=== PATIENT | male | born 1955 | race African-American/Black ===

== ENCOUNTER 2018-03-11 09:17 | Inpatient (IN) | payer MEDICAID ==
[~2018-03-11] VITALS: Ht 182.9 cm; Wt 111.6 kg
[2018-03-11 11:11] LABS: BASOPHILS % 0.4 % (0.0-2.0); EOSINOPHILS % 0.6 % (0.0-5.0); HEMATOCRIT. 46.2 % (42.0-52.0); LYMPHOCYTES % 11.3 % (20.0-50.0); MEAN CORPUSCULAR HEMOGLOBIN 34.1 pg (28.0-32.0); MEAN CORPUSCULAR VOLUME 98.2 fL (80.0-94.0); MEAN PLATELET VOLUME 6.9 fl (7.4-10.4); MONOCYTES % 7.8 % (2.0-8.0); NEUTROPHILS % 79.9 % (40.0-76.0); PLATELET 157 x1000/uL (130-400); RED CELL DISTRIBUTION WIDTH 13.4 % (11.6-14.6)
[2018-03-11 11:17] LABS: CHLORIDE 106 mEq/L (98-107)
[2018-03-11 11:19] LABS: INR 1.1; PROTHROMBIN TIME 10.7 sec (9.1-11.1)
[2018-03-11 11:24] LABS: ETHANOL BLOOD < 10 mg/dL
[2018-03-11 11:53] LABS: CLARITY URINE CLEAR (CLEAR); COLOR URINE YELLOW (YELLOW); KETONES URINE TRACE (NEGATIVE); LEUKOCYTE ESTERASE URINE NEGATIVE (NEGATIVE); NITRITE URINE NEGATIVE (NEGATIVE); OCCULT BLOOD URINE 1+ (NEGATIVE); PROTEIN URINE 1+ (NEGATIVE); SPECIFIC GRAVITY URINE 1.015 (1.005-1.030); UROBILINOGEN URINE 0.2 E.U./dL (0.2-1.0)
[2018-03-11 12:09] LABS: *AMPHETAMINES SCREEN URINE NEGATIVE (NEGATIVE); *BARBITURATES SCREEN URINE NEGATIVE (NEGATIVE); *COCAINE SCREEN URINE NEGATIVE (NEGATIVE)
[2018-03-11 12:10] LABS: METHADONE URINE SCREEN NEGATIVE (NEGATIVE); OPIATES URINE SCREEN NEGATIVE (NEGATIVE); PHENCYCLIDINE URINE SCREEN NEGATIVE (NEGATIVE)
[2018-03-11 12:12] LABS: CANNABINOID URINE SCREEN PRESUMTIVE POSITIVE (NEGATIVE)
[2018-03-11 12:13] LABS: *BENZODIAZEPINES SCREEN URINE NEGATIVE (NEGATIVE)
[2018-03-11] MEDS ORDERED: ONDANSETRON HCL 4MG/2ML INJ IV PRN (12:45)
[2018-03-11] MEDS ORDERED: CLONIDINE 0.1MG TABLET PO PRN (12:45)
[2018-03-11] MEDS ORDERED: DEXTROSE 50% WATER 50ML SYRINGE IV PRN (12:45)
[2018-03-11] MEDS ORDERED: ACETAMINOPHEN 325MG TABLET PO PRN (12:45)
[2018-03-11] MEDS ORDERED: LORAZEPAM 2MG/ML CPJ IV PRN (12:45)
[2018-03-11] MEDS: BLOOD SUGAR DIAGNOSTIC STRIP TEST SCH ×3 (13:00→21:00)
[2018-03-11] MEDS: INSULIN LISPRO 100 UNITS/ML SUBCUT SCH ×3 (13:20→21:00)
[2018-03-11 20:30] VITALS: BP 132/80
[2018-03-11 20:52] VITALS: BP 149/85
[2018-03-11] MEDS ORDERED: METF-414 PO (21:31)
[2018-03-11] MEDS ORDERED: ASPI-1159 PO (21:31)
[2018-03-11] MEDS: LEVETIRACETAM 500MG TABLET PO SCH (21:41)
[2018-03-11] MEDS: AMLODIPINE 5MG TABLET PO SCH (21:41)
[2018-03-11] MEDS ORDERED: ENOXAPARIN 40MG/0.4ML SYR SUBCUT SCH (22:00)
[2018-03-12] VITALS: BP 137/64
[2018-03-12 04:00] VITALS: BP 97/51
[2018-03-12 07:28] LABS: BASOPHILS % 0.5 % (0.0-2.0); EOSINOPHILS % 2.2 % (0.0-5.0); HEMATOCRIT. 42.9 % (42.0-52.0); HEMOGLOBIN. 14.7 g/dL (14.0-18.0); LYMPHOCYTES % 31.3 % (20.0-50.0); MEAN CORPUSCULAR HEMOGLOBIN 33.9 pg (28.0-32.0); MEAN CORPUSCULAR VOLUME 98.9 fL (80.0-94.0); MEAN PLATELET VOLUME 7.1 fl (7.4-10.4); MONOCYTES % 8.9 % (2.0-8.0); NEUTROPHILS % 57.1 % (40.0-76.0); PLATELET 150 x1000/uL (130-400); RED BLOOD CELL COUNT 4.33 mill/uL (4.7-6.1); RED CELL DISTRIBUTION WIDTH 13.4 % (11.6-14.6)
[2018-03-12] MEDS: BLOOD SUGAR DIAGNOSTIC STRIP TEST SCH ×2 (07:40→12:18)
[2018-03-12 08:06] LABS: CHLORIDE 107 mEq/L (98-107)
[2018-03-12] MEDS: INSULIN LISPRO 100 UNITS/ML SUBCUT SCH ×2 (08:10→12:19)
[2018-03-12] MEDS: LEVETIRACETAM 500MG TABLET PO SCH (09:01)
[2018-03-12] MEDS: AMLODIPINE 5MG TABLET PO SCH (09:02)
[2018-03-12 12:00] VITALS: BP 110/68
[2018-03-12 16:00] VITALS: BP 112/65
== END 2018-03-12 17:36 | disposition home or self-care (01) | DRG 53 ==
LOC: ER 09:17 → 7WST 12:18 → EDBEDREQ 12:21 → ENRESERV 18:08
PROVIDERS: ADMIT Internal Medicine; ATTEND Internal Medicine
PROC: 4A00X4Z Measurement of Central Nervous Electrical Activity, External Approach (ICD-10-PCS; principal; 2018-03-12)
DX: G40.89 Other seizures (principal); E11.10 Type 2 diabetes mellitus with ketoacidosis without coma; E44.0 Moderate protein-calorie malnutrition; I48.91 Unspecified atrial fibrillation; I69.351 Hemiplegia and hemiparesis following cerebral infarction affecting right dominant side; R16.0 Hepatomegaly, not elsewhere classified; E66.9 Obesity, unspecified; I10 Essential (primary) hypertension; J45.909 Unspecified asthma, uncomplicated; J32.4 Chronic pansinusitis; F12.90 Cannabis use, unspecified, uncomplicated; G31.9 Degenerative disease of nervous system, unspecified; Z68.33 Body mass index [BMI] 33.0-33.9, adult
CPT/HCPCS: 36415; 70551; 71045; 80048; 80061; 80305; 82962; 84443; 84484; 93005; 93970; 97162; 97166; 99285; G0482; J1650